=== PATIENT | female | born 1990 | race Caucasian/White ===

== ENCOUNTER 2023-07-13 16:10 | Emergency (ER) | payer OTHER, SELFPAY ==
[2023-07-13 16:16] VITALS: BP 126/90
[2023-07-13 16:34] LABS: % Basophils 0.9 % (0-2); % Immature Granulocytes 0.3 % (0-0.5); % Lymphocytes 24.4 % (20.5-51.1); % Monocytes 6.4 % (1.7-9.3); Absolute Basophils 0.1 10^3/uL (0-0.2); Absolute Eosinophils 0.4 10^3/uL (0-0.7); Absolute Lymphocytes 2.5 10^3/uL (1.2-3.4); Absolute Monocytes 0.6 10^3/uL (0.1-0.6); Absolute Neutrophils 6.4 10^3/uL (1.4-6.5); Hematocrit 35.9 % (37.0-47.0); Hemoglobin 12.8 g/dL (12.0-16.0); Mean Corp Hgb Conc. 35.7 g/dL (33.0-37.0); Mean Corpuscular Hgb 32.2 pg (27.0-31.0); Mean Corpuscular Volume 90.4 fL (81.0-99.0); Mean Platelet Volume 9.5 fL (7.4-10.4); Nucleated Red Blood Cells % 0 %; Platelet Count 377 10^3/uL (130-400); Red Blood Cell Count 3.97 10^6/uL (4.20-5.40); Red Cell Dist. Width 11.9 % (11.5-14.5)
[2023-07-13 16:41] LABS: Urine Albumin Negative (Neg - Trace); Urine Bilirubin 2+ (Negative); Urine Character Clear (Clear); Urine Color Amber; Urine Glucose Negative (Negative); Urine Ketone Negative (Negative); Urine Leukocyte 2+ (Negative); Urine Nitrite Positive (Negative); Urine Occult Blood Negative (Negative); Urine Urobilinogen 2+ (Neg - 1+); Urine pH 6.5 (5.0-9.0)
[2023-07-13 16:45] LABS: HCG, Serum Qualitative Screen Negative
[2023-07-13 16:49] LABS: ALT (SGPT) 34 U/L (0-35); AST (SGOT) 30 U/L (14-36); Albumin 4.4 g/dl (3.5-5.0); Alkaline Phosphatase 60 U/L (38-126); Blood Urea Nitrogen 9 mg/dl (7-17); Calcium 9.7 mg/dl (8.4-10.2); Carbon Dioxide 27 mmol/L (22-30); Chloride 103 mmol/L (98-107); Glucose 94 mg/dl (70-99); Potassium 3.8 mmol/L (3.5-5.1); Sodium 134 mmol/L (135-145); Total Bilirubin 0.4 mg/dl (0.2-1.3); Total Protein 7.2 g/dl (6.3-8.2); eGFR > 60.00
[2023-07-13 16:52] LABS: Urine Bacteria Few (Negative); Urine Red Blood Cell None Seen /HPF (0-2); Urine Squamous Cell >30 /LPF (Few)
--- NOTE | 2023-07-13 17:07 | ED.GENMED ---
History of Present Illness
General
Chief Complaint: Flank Pain
Time Seen by Provider: 07/13/23 16:39
Travel History
Have you had any contact with someone who has COVID-19?: No
Do you have any symptoms of coronavirus? Fever > 100 degrees, chills, cough, shortness of breath, sore throat, loss of taste or smell, muscle aches, or headache?: No
History of Present Illness
History of Present Illness:
33-year-old female with history of kidney stones presents the emergency department for evaluation of right flank pain ongoing for the past 2 days. Pain is radiating from the right costovertebral angle toward the suprapubic region. States it feels
similar to past kidney stones. Has never required urologic intervention for stones. Pain is mild at this time. Did take ibuprofen earlier in the day. Does not take any anticoagulants. Denies any fever, chills, sweats, nausea, vomiting, or gross
hematuria.
Review of Systems
Review of Systems
Allergies reviewed?: Yes
All Other Systems: ROS reviewed and negative except as documented in HPI and ROS
Phy Exam
Physical Exam
Physical Exam:
GEN: Well appearing, NAD, WDWN
HEENT: Oral mucosa moist, no scleral icterus
Cardiac: Regular rate
Lung: No respiratory distress, no tachypnea
MSK: No gross deformity or injuries
Skin: Good color, no pallor or jaundice, no rashes
Neuro: AO x3, moves all extremities freely
Psych: Calm, cooperative
Course
Orders/Labs/Results
Orders:
Orders
07/13/23 16:15
Test Result ONCE
07/13/23 16:23
Complete Blood Count/With Diff Urgent
Comprehensive Metabolic Panel Urgent
HCG, Serum Qualitative Screen Urgent
Urinalysis Reflex To Culture Urgent
Date Specimen was Collected: 07/13/23
Time Specimen was Collected: 16:15
Urine Microscopic Reflex Cult Urgent
Urine Culture Urgent
JORDIN Source: U
Specimen Description:
Date Specimen was Collected: 07/13/23
Time Specimen was Collected: 16:15
07/13/23 17:07
Ketorolac [Toradol] 30 mg IM NOW STA
Abnormal Lab Results
07/13/23
16:23
RBC 3.97 L 10^6/uL
(4.20-5.40)
Hct 35.9 L %
(37.0-47.0)
MCH 32.2 H pg
(27.0-31.0)
Sodium 134 L mmol/L
(135-145)
Urine Nitrite (Reflex) Positive A
(Negative)
Urine Bilirubin 2+ A
(Negative)
Urine Urobilinogen 2+ A
(Neg - 1+)
Leukocyte Esterase Rfl 2+ A
(Negative)
Urine WBC (Reflex) 11-15 A /HPF
(0-5)
Urine Bacteria (Reflex) Few A
(Negative)
07/13/23 16:23
07/13/23 16:23
Vital Signs
Initial and Last Documented VS:
Initial Vital Signs
Temp Pulse Resp BP Pulse Ox
97.6 F 78 17 126/90 100
07/13/23 16:16 07/13/23 16:16 07/13/23 16:16 07/13/23 16:16 07/13/23 16:16
Last Documented Vital Signs
Temp Pulse Resp BP Pulse Ox
97.6 F 78 17 126/90 100
07/13/23 16:16 07/13/23 16:16 07/13/23 16:16 07/13/23 16:16 07/13/23 16:16
MDM/Problems Addressed
MDM/Problems Addressed:
Patient appears clinically well and labs are reassuring. I discussed options with the patient regarding imaging to identify a stone versus empiric treatment given that she has a history of comparable symptoms. After lengthy discussion and through
shared decision making we decided to avoid imaging to avoid excess radiation risk at this time. Her pain is quite minimal despite not being medicated in the emergency department. Will give initial dose of IM Toradol and discharged on a short
course of p.o. Toradol as well as tamsulosin, ED return parameters and supportive care discussed
*Critical Care Note
Total Time (30-74mins, 75-104mins- exclusive of procedures): Not Applicable
ED Attending Note
-
Portions of this chart may have been created with voice recognition software.� Occasional wrong word or��sound alike� substitutions may have occurred due to the inherent limitations of voice recognition software.
Discharge Plan
Departure
Patient Disposition: Home (Routine Discharge)
Date of Disposition: 07/13/23
Time of Disposition: 17:08
Patient with high blood pressure during this ER visit?: No
Discharge Problem:
Kidney stones
Instructions: Renal Colic (DC)
Prescriptions:
New
ketorolac 10 mg tablet
10 mg PO Q6H PRN (Reason: Pain) 5 Days Qty: 15 0RF
oxycodone 5 mg tablet
5 mg PO Q8H PRN (Reason: Pain) Qty: 8 0RF
tamsulosin [Flomax] 0.4 mg capsule
0.4 mg PO HS Qty: 10 0RF
No Action
doxycycline monohydrate 100 mg capsule
100 mg PO BID Qty: 20 0RF
Referrals:
Brady Gross DO [Family Provider] -
Activity Restrictions/Additional Instructions:
If your symptoms worsen, you develop a fever, or pain lasts longer than 5 days please return to the emergency department for reevaluation
Interventions
Interventions:
*Risk Screen - Suicide Last Done: 07/13/23 16:16
*General Assessment Last Done: 07/13/23 16:16
*Neglect/Abuse Screening Last Done: 07/13/23 16:16
*ED COVID-19 Vaccine History Last Done: 07/13/23 16:16
*Nursing Disposition Last Done: 07/13/23 17:23
Y[facility]-[place] Assessment Last Done: 07/13/23 17:20
ED-Female Genitourinary Assessment Last Done: 07/13/23 17:20
Discharge Date and Time
Discharge Date/Time: 07/13/23 17:35
Print Language: CANADIAN
[2023-07-13] MEDS: TORADOL 30 MG IM (17:17)
== END 2023-07-13 17:35 | disposition home or self-care (01) ==
LOC: EMR 16:10
PROVIDERS: Emergency Medicine; EMERGENCY PHYSICIAN Emergency Medicine; FAMILY PHYSICIAN Family Medicine
DX: N20.0 Calculus of kidney (principal); Z87.442 Personal history of urinary calculi
CPT/HCPCS: 99282; 96372; 80053; 81003; 81015; 84703; 85025; 87086